=== PATIENT | male | born 1945 | race Caucasian/White ===

== ENCOUNTER → 2020-09-18 | Outpatient (CLI) | payer OTHER, MEDICARE ==
[~2020-09-18] MED LIST: ACETAMINOPHEN325 M1 PO; BAYER CHEWABLE81 MG PO; COMBIVENT INH; HYDROCHLOROTHIA25 M2 PO; LEVAQUIN 500 M500 M2 PO; LIPITOR 20 MG T20 M1 PO; NORVASC10 MG PO; PREDNISONE 5 MG5 M1 PO; VITAMIN D31000 UNI2 PO; ZOLOFT50 MG PO
== END ==
LOC: SJCVCIMAG 07:12
PROVIDERS: ATTEND Internal Medicine
DX: I49.3 Ventricular premature depolarization (principal); R06.00 Dyspnea, unspecified; R11.0 Nausea; R07.2 Precordial pain; E78.5 Hyperlipidemia, unspecified; I10 Essential (primary) hypertension; R09.89 Other specified symptoms and signs involving the circulatory and respiratory systems; E11.9 Type 2 diabetes mellitus without complications; Z88.8 Allergy status to other drugs, medicaments and biological substances; Z79.82 Long term (current) use of aspirin; Z79.899 Other long term (current) drug therapy; Z87.891 Personal history of nicotine dependence; Z82.49 Family history of ischemic heart disease and other diseases of the circulatory system

== ENCOUNTER → 2020-09-24 | Outpatient (CLI) | payer OTHER, MEDICARE | LOC: CAT 09:57 | PROVIDERS: ATTEND Internal Medicine | DX: Z12.2 Encounter for screening for malignant neoplasm of respiratory organs (principal); I70.0 Atherosclerosis of aorta; R91.1 Solitary pulmonary nodule; N28.1 Cyst of kidney, acquired; M47.815 Spondylosis without myelopathy or radiculopathy, thoracolumbar region; Z87.891 Personal history of nicotine dependence ==

== ENCOUNTER → 2020-10-24 | Outpatient (CLI) | payer OTHER, MEDICARE | LOC: SJCVCIMAG 07:24 | PROVIDERS: ATTEND Internal Medicine | DX: I65.23 Occlusion and stenosis of bilateral carotid arteries (principal); E11.621 Type 2 diabetes mellitus with foot ulcer; L97.519 Non-pressure chronic ulcer of other part of right foot with unspecified severity; L97.529 Non-pressure chronic ulcer of other part of left foot with unspecified severity; E11.51 Type 2 diabetes mellitus with diabetic peripheral angiopathy without gangrene; I73.9 Peripheral vascular disease, unspecified; I77.811 Abdominal aortic ectasia; Z79.82 Long term (current) use of aspirin; Z79.899 Other long term (current) drug therapy; Z87.891 Personal history of nicotine dependence ==